=== PATIENT | male | born 1965 | race Caucasian/White ===

== ENCOUNTER 2022-05-08 11:26 | Emergency (ER) | payer OTHER, SELFPAY ==
[2022-05-08] MEDS ORDERED: Boostrix 0.5 ML (Tdap) VIAL (>/=7 yrs of age) ONE (12:04)
[2022-05-08] MEDS ORDERED: Ketorolac Tromethamine 30 MG/ML VIAL ONE (12:04)
[2022-05-08] MEDS ORDERED: Triple Antibiotic Oint 1 GM Packet ONE (13:28)
== END 2022-05-08 13:35 | disposition home or self-care (01) ==
LOC: CSHERS 11:26
DX: M54.50 Low back pain, unspecified (principal); F17.210 Nicotine dependence, cigarettes, uncomplicated; V63.0XXA Driver of heavy transport vehicle injured in collision with car, pick-up truck or van in nontraffic accident, initial encounter; Y92.410 Unspecified street and highway as the place of occurrence of the external cause
CPT/HCPCS: 72131; 90471; 90715; 96372; J1885

== ENCOUNTER 2023-04-08 09:49 | Emergency (ER) | payer SELFPAY ==
[2023-04-08 10:49] LABS: ALT (SGPT) 11 U/L (8-55); AST (SGOT) 14 U/L (5-34); Alkaline Phosphatase 47 U/L (40-110); Anion Gap 15 mmol/L (10-20); BUN (Urea Nitrogen) 14 mg/dL (8.4-25.7); Bilirubin, Total 0.4 mg/dL (0.2-1.2); Calc. Creatinine Clearance 0 mL/min (70-130); Calcium 9.1 mg/dL (7.8-10.44); Carbon Dioxide 21 mmol/L (22-29); Chloride 108 mmol/L (98-107); Estimated GFR 78; Globulin 2.4 g/dL (2.4-3.5); Glucose 98 mg/dL (70-105); Potassium 4.5 mmol/L (3.5-5.1); Protein, Total 6.4 g/dL (6.0-8.3); Sodium 139 mmol/L (136-145)
[2023-04-08 10:51] LABS: Troponin I Less than 0.010 ng/mL (< 0.028)
[2023-04-08 10:52] LABS: #Eosinphils 0.3 10x3/uL (0.0-0.5); #Monocytes 0.9 10x3/uL (0.0-1.1); #Neutrophils 8.2 10x3/uL (1.5-8.4); %Basophils 0.2 % (0.0-2.0); %Lymphocytes 28.1 % (18.0-47.0); %Neutrophils 62.4 % (40.0-75.0); Hematocrit 47.1 % (38.8-50.0); Hemoglobin 15.3 g/dL (13.5-17.5); Mean Corpuscular HGB CONC 32.5 g/dL (32.0-36.0); Mean Corpuscular Hemoglobin 29.6 pg (27.0-33.0); Mean Corpuscular Volume 91.1 fl (81.2-95.1); Platelet Count 299 10x3/uL (150-450); RBC Distribution Width 12.8 % (11.5-14.5); Red Blood Cell (RBC) Count 5.17 10x6/uL (4.32-5.72); White Blood Cell (WBC) Count 13.2 10x3/uL (3.5-10.5)
== END 2023-04-08 13:10 | disposition home or self-care (01) ==
LOC: CSHERS 09:49
DX: S60.212A Contusion of left wrist, initial encounter (principal); R07.9 Chest pain, unspecified
CPT/HCPCS: 36415; 71045; 80053; 84484; 85025; 93005